=== PATIENT | male | born 1995 | race Caucasian/White ===

== ENCOUNTER 2018-07-09 06:11 | Emergency (ER) | payer OTHER ==
[2018-07-09 06:57] LABS: ADD MAN DIFF? NO
[2018-07-09] MEDS: SOD CHLORIDE 0.9% 1,000 ML IV (06:58)
[2018-07-09] MEDS: LEVETIRACETAM 1000 MG (PMX) 100 ML IVPB (06:58)
[2018-07-09 07:09] LABS: BASOPHILS % 0.7 % (0.0-2.0); HEMATOCRIT 42.3 % (42.0-52.0); HEMOGLOBIN 14.6 g/dl (14.0-18.0); LYMPHOCYTES # 1.5 10^3/ul (0.8-2.9); MEAN CORPUSCULAR HGB CONC 34.5 g/dl (32.0-37.0); MEAN CORPUSCULAR VOLUME 92.8 fl (82.0-101.0); MEAN PLATELET VOLUME 9.3 fl (7.4-10.4); MONOCYTE # 0.3 10^3/ul (0.3-0.9); MONOCYTES % 6.7 % (0.0-11.0); NEUTROPHIL # 2.1 10^3/ul (1.6-7.5); NEUTROPHILS % 53.1 % (39.0-77.0); PLATELET COUNT 215 10^3/UL (140-415); RED BLOOD COUNT 4.56 10^6/ul (4.70-6.10); RED CELL DISTRIBUTION WIDTH 11.9 % (11.5-14.5)
[2018-07-09 07:24] LABS: ALANINE AMINOTRANSFERASE 17 IU/L (13-69); ALBUMIN 4.4 g/dl (3.3-4.9); ALBUMIN/GLOBULIN RATIO 1.41; ALKALINE PHOSPHATASE 114 IU/L (42-121); ANION GAP 13 (8-16); ASPARTATE AMINO TRANSFERASE 19 IU/L (15-46); BILIRUBIN,INDIRECT 0.3 mg/dl (0-1.1); BILIRUBIN,TOTAL 0.3 mg/dl (0.2-1.3); BLOOD UREA NITROGEN 15 mg/dl (7-20); CALCIUM 9.3 mg/dl (8.4-10.2); CARBON DIOXIDE 27 mmol/L (21-31); CHLORIDE 107 mmol/L (97-110); CREATININE 0.69 mg/dl (0.61-1.24); GLUCOSE 90 mg/dl (70-220); INR 0.93; PARTIAL THROMBOPLASTIN TIME 26.9 Sec (23.0-35.0); POTASSIUM 4.1 mmol/L (3.5-5.1); PROTIME 12.6 Sec (11.9-14.9); SODIUM 143 mmol/L (135-144); TOTAL PROTEIN 7.5 g/dl (6.1-8.1)
[2018-07-09 07:33] LABS: VALPROATE 43 ug/ml (50-100)
== END 2018-07-09 08:19 | disposition home or self-care (01) ==
LOC: E/R 06:11
DX: R56.9 Unspecified convulsions (principal); F88 Other disorders of psychological development
CPT/HCPCS: 80053; 80164; 85025; 85610; 85730; 96374; 99284-25

== ENCOUNTER 2019-06-23 19:06 | Inpatient (IN) | payer OTHER ==
[2019-06-23] MEDS: LORAZEPAM 2 MG INJ IV (21:58)
[2019-06-23] MEDS: LEVETIRACETAM 1000 MG (PMX) 100 ML IVPB (21:58)
[2019-06-23] MEDS ORDERED: ACETAMINOPHEN 325 MG TAB PO (23:30)
[2019-06-23] MEDS ORDERED: ONDANSETRON 4 MG INJ IV (23:30)
[2019-06-24] MEDS ORDERED: NACL 0.9% 3 ML SYG IV (02:30)
[2019-06-24] MEDS ORDERED: ONDANSETRON 4 MG INJ IV (02:30)
[2019-06-24] MEDS ORDERED: ACETAMINOPHEN 325 MG TAB PO (02:30)
[2019-06-24] MEDS ORDERED: LORAZEPAM 0.5 MG TAB PO (02:30)
[2019-06-24] MEDS: DIVALPROEX (EC) 500 MG TAB PO ×3 (03:29→20:17)
[2019-06-24] MEDS: LORAZEPAM 2 MG INJ IV (11:05)
[2019-06-24] MEDS: LEVETIRACETAM 500 MG TAB PO ×2 (18:02→20:17)
[2019-06-25] MEDS: LEVETIRACETAM 500 MG TAB PO ×2 (09:17→20:42)
[2019-06-25] MEDS: DIVALPROEX (EC) 500 MG TAB PO ×2 (09:17→20:42)
[2019-06-26] MEDS: LEVETIRACETAM 500 MG TAB PO ×2 (08:23→21:39)
[2019-06-26] MEDS: DIVALPROEX (EC) 500 MG TAB PO ×2 (08:23→21:40)
[2019-06-27] MEDS: DIVALPROEX (EC) 500 MG TAB PO (08:40)
[2019-06-27] MEDS: LEVETIRACETAM 500 MG TAB PO (08:40)
== END 2019-06-27 16:21 | disposition home or self-care (01) | DRG 101 ==
LOC: TEL 23:05 → E/R 19:06
DX: G40.909 Epilepsy, unspecified, not intractable, without status epilepticus (principal); F79 Unspecified intellectual disabilities
CPT/HCPCS: 36415; 70450; 71045; 80048; 80053; 80061; 80164; 80307; 81003; 82962; 83036; 83735; 84100; 84443; 85025; 96374; 96375; 99285-25; G0378